=== PATIENT | male | born 1990 | race American Indian/Alaskan Native ===

== ENCOUNTER 2021-01-20 11:40 | Emergency (ER) | payer SELFPAY ==
[2021-01-20 11:47] VITALS: BP 163/93
--- NOTE | 2021-01-20 12:33 | Emergency Department Report ---
ED General Adult HPI - General Chief complaint: Sore Throat Stated complaint: TIGHTNESS IN THROAT, LEFT SIDE PAIN Time Seen by Provider: 01/20/21 12:22 Source: patient Mode of arrival: Ambulatory Limitations: No Limitations - History of Present Illness Initial comments: Patient is a 30-year-old male presents emergency room with complaints of intermittent sensation of food getting stuck for a week. He states that he feels like he has to swallow a couple of times but is able to fully swallow the food. He states occasionally it feels like a pressure sensation. He is still able to tolerate p.o. intake. He denies any regurgitation of solids or liquids. He denies any fever, nausea, vomiting, diarrhea, hemoptysis, hematochezia, melena, hematemesis. He states that occasionally he feels some pressure in the left upper quadrant. No past medical history. No allergies medications. - Related Data Previous Rx's Medication Instructions Recorded Last Taken Type Famotidine [Pepcid] 40 mg PO QHS #14 tablet 01/20/21 Unknown Rx Sucralfate [Carafate] 1 gm PO ACHS #210 [facility] 01/20/21 Unknown Rx Allergies Allergy/AdvReac Type Severity Reaction Status Date / Time No Known Allergies Allergy Verified 01/20/21 11:46 ED Review of Systems ROS: Stated complaint: TIGHTNESS IN THROAT, LEFT SIDE PAIN Other details as noted in HPI Comment: All other systems reviewed and negative ED Past Medical Hx - Past Medical History Previous Medical History?: No - Surgical History Past Surgical History?: No - Social History Smoking Status: Current Every Day Smoker Substance Use Type: None - Medications Home Medications: Home Medications Medication Instructions Recorded Confirmed Last Taken Type Famotidine [Pepcid] 40 mg PO QHS #14 tablet 01/20/21 Unknown Rx Sucralfate [Carafate] 1 gm PO ACHS #210 udc 01/20/21 Unknown Rx ED Physical Exam - General Limitations: No Limitations General appearance: alert, in no apparent distress - Head Head exam: Present: atraumatic, normocephalic - Eye Eye exam: Present: normal appearance - ENT ENT exam: Present: normal orophraynx, mucous membranes moist - Respiratory Respiratory exam: Present: normal lung sounds bilaterally. Absent: respiratory distress, wheezes, rales, rhonchi, stridor, chest wall tenderness, accessory muscle use, decreased breath sounds, prolonged expiratory - Cardiovascular Cardiovascular Exam: Present: regular rate, normal rhythm, normal heart sounds. Absent: systolic murmur, diastolic murmur, rubs, gallop - GI/Abdominal GI/Abdominal exam: Present: soft, normal bowel sounds. Absent: distended, tenderness, guarding, rebound, rigid - Neurological Exam Neurological exam: Present: alert, oriented X3 - Psychiatric Psychiatric exam: Present: normal affect, normal mood - Skin Skin exam: Present: warm, dry, intact ED Course Vital Signs 01/20/21 11:43 Temperature 98.6 F Pulse Rate 92 H Respiratory 18 Rate Blood Pressure 163/93 O2 Sat by Pulse 100 Oximetry ED Medical Decision Making - Medical Decision Making Patient is a 30-year-old male presents emergency room with complaints of intermittent sensation of food getting stuck for a week. He states that he feels like he has to swallow a couple of times but is able to fully swallow the food. He states occasionally it feels like a pressure sensation. He is still able to tolerate p.o. intake. He denies any regurgitation of solids or liquids. He denies any fever, nausea, vomiting, diarrhea, hemoptysis, hematochezia, melena, hematemesis. He states that occasionally he feels some pressure in the left upper quadrant. No past medical history. No allergies medications. Vitals are stable. No abnormality on physical exam as documented in chart. Patient is able to tolerate p.o. intake. Symptoms could be related to GERD versus esophageal narrowing. He has no clinical signs of acute obstruction. Discussed the importance of GI follow-up. Discussed very strict return precautions with patient. Patient given prescription for Pepcid and Carafate. Advised patient Please take medication as prescribed. Increase your water intake. Please eat small bite-size foods. Follow-up with a GI doctor for further evaluation. follow up with a primary care doctor. Return to emergency room immediately for any new or worsening symptoms including but not limited to regurgitation of food, unable to swallow and keep down liquids or solids, coughing up blood, vomiting, vomiting blood, etc. Critical care attestation.: If time is entered above; I have spent that time in minutes in the direct care of this critically ill patient, excluding procedure time. ED Disposition Clinical Impression: Dysphagia Qualifiers: Dysphagia type: unspecified Qualified Code(s): R13.10 - Dysphagia, unspecified Disposition: DC-01 TO HOME OR SELFCARE Is pt being admited?: No Does the pt Need Aspirin: No Condition: Stable Instructions: Dysphagia, Dysphagia Eating Plan, Bite Size Food Additional Instructions: Please take medication as prescribed. Increase your water intake. Please eat small bite-size foods. Follow-up with a GI doctor for further evaluation. follow up with a primary care doctor. Return to emergency room immediately for any new or worsening symptoms including but not limited to regurgitation of food, unable to swallow and keep down liquids or solids, coughing up blood, vomiting, vomiting blood, etc. Prescriptions: Famotidine [Pepcid] 40 mg PO QHS #14 tablet Sucralfate [Carafate] 1 gm PO ACHS #210 [facility] [place] Referrals: [facility] [Provider Group] - 2-3 Days your, primary care doctor [Other] - 2-3 Days Forms: Work/School Release Form(ED) Time of Disposition: 12:34 Print Language: GERMAN
== END 2021-01-20 13:02 | disposition home or self-care (01) ==
LOC: ED 11:40
DX: R13.10 Dysphagia, unspecified (principal); F17.200 Nicotine dependence, unspecified, uncomplicated; Z79.899 Other long term (current) drug therapy
CPT/HCPCS: 99282